=== PATIENT | female | born 1995 | race Caucasian/White ===

== ENCOUNTER → 2016-07-05 | Outpatient (CLI) | payer OTHER ==
[~2016-07-05] MED LIST: EFFEXOR75 MG PO; MINIPRESS2 M1 PO; MUCINEX600 MG PO; PROVENTIL OR V6.7 GM INH; REMERON 30 MG30 MG PO; SEROQUEL100 MG PO; VENLAFAXINE H37.5 MG PO; VYVANSE20 MG PO
== END | disposition disaster alternative care site (69) ==
LOC: GRAD 10:37
DX: R11.10 Vomiting, unspecified (principal)
CPT/HCPCS: A9541

== ENCOUNTER 2017-01-17 21:30 | Emergency (ER) | payer OTHER ==
--- NOTE | ~2017-01-17 | ER ---
PATIENT'S NAME: ASIYA STRONG [facility] AGE: 21 Y [address] ROOM: [place] [address] LOCATION: [facility] ADMIT DATE: 01/17/2017 ER/Outpatient Report DISCHARGE DATE: 01/17/2017 FAMILY PHYSICIAN: Physician, Unknown ATTENDING PHYSICIAN: Chad Stout Time of Arrival: 2130 hours. Time of Evaluation: 2144 hours. CHIEF COMPLAINT: Abdominal cramping. HISTORY OF PRESENT ILLNESS: The patient is a 21-year-old female, who presents to the emergency department today with a chief complaint of abdominal cramping. The patient thinks she is about seven weeks . She reports this started about 3 hours prior to arrival. It is in her lower abdomen. She denies any leakage of fluid. She denies any vaginal bleeding. No vaginal discharge. No urinary frequency, urgency, or painful urination. No pelvic pain. No contractions. The pain is currently 7/10 in severity. The patient does report that she is G2 with one miscarriage in the past. PAST MEDICAL HISTORY: Asthma. PAST SURGICAL HISTORY: Left breast, left foot. SOCIAL HISTORY: The patient denies any tobacco use and reports she quit two months ago. Denies any alcohol or illicit drug use. ALLERGIES: TO PENICILLIN AND CECLOR. MEDICATIONS: Please see list. PRIMARY CARE DOCTOR: Dr. Abbott. REVIEW OF SYSTEMS: All systems are reviewed by myself and are negative with the exception of those discussed in HPI and past medical history. PATIENT'S NAME: ASIYA STRONG [facility] AGE: 21 Y [address] ROOM: [place] [address] LOCATION: [facility] ADMIT DATE: 01/17/2017 ER/Outpatient Report DISCHARGE DATE: 01/17/2017 FAMILY PHYSICIAN: Physician, Unknown ATTENDING PHYSICIAN: Chad Stout PHYSICAL EXAMINATION: VITAL SIGNS: Weight 64.7 kg, blood pressure 117/73, pulse 87, respiratory rate 18, temperature 97.9, and oxygen saturation 97% on room air. GENERAL: The patient is a 21-year-old female, who appears stated age. Well developed, well nourished, in no acute distress. HEENT: Head normocephalic, atraumatic. Pupils are equal, round, and reactive to light. NECK: Supple. There is no nuchal rigidity. CARDIOVASCULAR: Regular rate and rhythm. No murmurs, rubs, or gallops. LUNGS: Clear to auscultation bilaterally. No wheezes, rales, or rhonchi. ABDOMEN: Soft, nontender, and nondistended. No rebound, rigidity, or guarding. Positive bowel sounds. MUSCULOSKELETAL: The patient moves all 4 extremities. SKIN: Warm and dry. There is no pretibial edema. LABS AND X-RAYS: Serum HCG is 1017. Urinalysis shows 25 leukocyte esterase, 15 protein, 10 blood, 2 to 5 wbc's, 0 to 2 rbc's, 5 to 10 epithelials, moderate bacteria. A bedside ultrasound is performed by myself does show a gestational sac in two planes within the uterus. I see no evidence of yolk sac. There is no obvious adnexal mass noted. There is no obvious free fluid. IMPRESSION: 1. Positive with gestational sac of 5 weeks. 2. Abdominal pain, in early . 3. Initial visit. EMERGENCY DEPARTMENT COURSE: The patient was brought back to the examination room. Seen and evaluated by myself. Laboratory analysis and imaging were obtained described above. The patient's abdominal exam was repeated. She continues to have a nonsurgical abdominal exam at this time. Her pain is resolved. She has no abdominal pain on exam. I think, she is exceedingly low risk of ectopic at this time. She does have a gestational sac. I do not see any yolk sac. I have discussed with her there is potentially could be an ectopic . I have discussed return to care instructions including vaginal bleeding, worsening abdominal pain, or any other concerns to return for re-evaluation. Her serum quantitative level is consistent with a 5-week gestation. I have discussed getting in to see Dr. Abbott, her OB care in 1 to 2 days for re- evaluation. Discussed those return to care instructions. The patient is agreeable. Her friend who is agreeable. She is without further questions at the time of discharge. DISPOSITION: The patient will be discharged home in good condition. PATIENT'S NAME: ASIYA STRONG [facility] AGE: 21 Y [address] ROOM: [place] [address] LOCATION: ED ADMIT DATE: 01/17/2017 ER/Outpatient Report DISCHARGE DATE: 01/17/2017 FAMILY PHYSICIAN: Pedro Dumont ATTENDING PHYSICIAN: Chad Stout DO YONI CRAIG/neeraj /[id number] d: 01/18/17 0119 t: 01/20/17 1934, OUTPATIENT REPORT
[2017-01-17 22:10] LABS: BILIRUBIN URINE NEGATIVE (NEGATIVE); BLOOD URINE 10 /UL (NEGATIVE); COLOR URINE YELLOW (YELLOW); GLUCOSE URINE NEGATIVE (NEGATIVE); KETONE URINE NEGATIVE (NEGATIVE); LEUKOCYTES URINE 25 /UL (NEGATIVE); NITRITE URINE NEGATIVE (NEGATIVE); PROTEIN URINE 15 mg/dL (NEGATIVE); TURBIDITY URINE 1+ (CLEAR); UROBILINOGEN URINE 1 mg/dL (NORMAL)
[2017-01-17 22:19] LABS: MUCUS URINE 2+ (NEGATIVE)
[2017-01-17 22:21] LABS: RBC URINE 0-2 #/HPF (NEGATIVE)
[2017-01-17 22:29] LABS: BACTERIA URINE MODERATE (NEGATIVE)
== END 2017-01-17 22:58 | disposition disaster alternative care site (69) ==
LOC: GMED 21:30
PROVIDERS: Emergency Medicine
DX: O99.89 Other specified diseases and conditions complicating pregnancy, childbirth and the puerperium (principal); R10.9 Unspecified abdominal pain; Z88.0 Allergy status to penicillin; Z88.8 Allergy status to other drugs, medicaments and biological substances; Z87.891 Personal history of nicotine dependence; Z3A.01 Less than 8 weeks gestation of pregnancy